=== PATIENT | male | born 1960 | race African-American/Black ===

== ENCOUNTER 2023-11-20 10:01 | Emergency (ER) | payer SELFPAY ==
[2023-11-22 06:25] LABS: Chlam.trachomatis by PCR,Urine Not Detected (NotDetected); GC N.gonorrhoeae PCR,UrineVOID Not Detected (NotDetected)
== END 2023-11-20 11:49 | disposition home or self-care (01) ==
LOC: CSHERS 10:01
DX: B37.42 Candidal balanitis (principal)
CPT/HCPCS: 87491; 87591; 99283

== ENCOUNTER 2024-11-04 11:15 | Emergency (ER) | payer SELFPAY ==
[2024-11-04 12:23] LABS: #Basophils 0.03 10x3/uL (0.0-0.2); #Eosinophils 0.18 10x3/uL (0.0-0.5); #Monocytes 0.47 10x3/uL (0.0-1.1); #Neutrophils 4.93 10x3/uL (1.5-8.4); %Basophils 0.5 % (0.0-2.0); %Eosinophils 2.8 % (0.0-6.0); %Lymphocytes 13.3 % (18.0-47.0); %Monocytes 7.3 % (0.0-10.0); %Neutrophils 75.9 % (40.0-75.0); Hematocrit 43.7 % (38.8-50.0); Hemoglobin 14.0 g/dL (13.5-17.5); Mean Corpuscular Hemoglobin 29.0 pg (27.0-33.0); Mean Corpuscular Volume 90.5 fL (81.2-95.1); Platelet Count 260 10x3/uL (150-450); Red Blood Cell (RBC) Count 4.83 10x6/uL (4.32-5.72); White Blood Cell (WBC) Count 6.48 10x3/uL (3.5-10.5)
[2024-11-04 12:34] LABS: Anion Gap 12 mmol/L (10-20); BUN (Urea Nitrogen) 9 mg/dL (8.4-25.7); Calc. Creatinine Clearance 0 mL/min (70-130); Calcium 9.6 mg/dL (7.8-10.44); Carbon Dioxide 25 mmol/L (23-31); Chloride 107 mmol/L (98-107); Glucose 87 mg/dL (80-115); Potassium 4.2 mmol/L (3.5-5.1); Sodium 140 mmol/L (136-145)
== END 2024-11-04 12:45 | disposition home or self-care (01) ==
LOC: CSHERS 11:15
DX: L20.9 Atopic dermatitis, unspecified (principal)
CPT/HCPCS: 36415; 80048; 85025; 99283